=== PATIENT | male | born 1975 | race Caucasian/White ===

== ENCOUNTER 2020-04-27 08:07 | Outpatient (REF) | payer OTHER, SELFPAY ==
[2020-04-27 09:09] LABS: MANUAL DIFF FLAG NO
[2020-04-27 09:17] LABS: Basophils Absolute Auto 0.1 X10*3/uL (0.0-0.2); Basophils Percent Auto 0.7 % (0-2); Eosinophils Absolute Auto 0.1 X10*3/uL (0.0-0.4); Eosinophils Percent Auto 1.6 % (0-4); Hematocrit 43.2 % (42-52); Hemoglobin 14.6 g/dl (14.0-18.0); Imm Gran Abs Auto 0.02 X10*3/uL (0.00-0.03); Imm Gran Pct Auto 0.3 % (0.0-0.4); Lymphocytes Absolute Auto 2.4 X10*3/uL (1.2-4.9); Lymphocytes Percent Auto 35.1 % (20-40); Mean Corpuscular HGB Conc 33.8 g/dl (31.0-36.0); Mean Corpuscular Hemoglobin 28.2 pg (27.0-33.0); Mean Corpuscular Volume 83.4 fL (80-98); Mean Platelet Volume 11.6 fL (9.4-12.4); Monocytes Absolute Auto 0.4 X10*3/uL (0.1-1.2); Monocytes Percent Auto 5.4 % (2-11); Neutrophils Absolute Auto 3.8 X10*3/uL (2.0-8.3); Neutrophils Percent Auto 56.9 % (45-73); Platelet Count 215 X10*3/uL (160-400); Red Blood Count 5.18 X10*6/uL (4.60-5.80); White Blood Count 6.7 X10*3/uL (4.8-10.8)
[2020-04-27 09:41] LABS: Alanine Aminotransferase 12 U/L (0-40); Albumin Level 4.6 g/dL (3.5-5.0); Alkaline Phosphatase 60 U/L (39-117); Anion Gap 12 (12-20); Aspartate Amino Transferase 20 U/L (5-37); Bilirubin Total 0.5 mg/dL (0.0-1.0); Blood Urea Nitrogen 15 mg/dL (9-16); Calcium 9.2 mg/dL (8.4-10.2); Carbon Dioxide 28 mmol/L (22-29); Chloride 107 mmol/L (96-108); Cholesterol 267 mg/dL; Estimated Glomerular Filt Rate > 60; Glucose Fasting 92 mg/dL (60-99); HDL Cholesterol 43 mg/dL; LDL Cholesterol Calculated 205 mg/dl; Potassium 4.6 mmol/L (3.3-5.1); Sodium 142 mmol/L (135-145); Total Protein 6.9 g/dL (6.5-8.0); Triglycerides 95 mg/dL
[2020-04-27 10:07] LABS: Thyroid Stimulating Hormone 0.83 uIU/mL (0.32-4.0)
== END 2020-04-27 08:08 | disposition home or self-care (01) ==
LOC: HO.LAB 08:07
PROVIDERS: PCP Internal Medicine; Visit Provider Internal Medicine
DX: Z00.00 Encounter for general adult medical examination without abnormal findings (principal); E03.9 Hypothyroidism, unspecified; E11.9 Type 2 diabetes mellitus without complications
CPT/HCPCS: 36415; 80053; 80061; 84443; 85025

== ENCOUNTER 2021-05-17 09:48 | Outpatient (REF) | payer OTHER, SELFPAY ==
[2021-05-17 10:22] LABS: MANUAL DIFF FLAG NO
[2021-05-17 11:15] LABS: Basophils Percent Auto 0.4 % (0-2); Eosinophils Absolute Auto 0.1 X10*3/uL (0.0-0.4); Eosinophils Percent Auto 1.6 % (0-4); Hematocrit 44.3 % (42.0-52.0); Imm Gran Abs Auto 0.02 X10*3/uL (0.00-0.03); Imm Gran Pct Auto 0.3 % (0.0-0.4); Lymphocytes Absolute Auto 2.8 X10*3/uL (1.2-4.9); Lymphocytes Percent Auto 40.8 % (20-40); Mean Corpuscular HGB Conc 33.9 g/dl (31.0-36.0); Mean Corpuscular Hemoglobin 27.8 pg (27.0-33.0); Mean Corpuscular Volume 82.2 fL (80.0-98.0); Mean Platelet Volume 11.1 fL (9.4-12.4); Monocytes Absolute Auto 0.5 X10*3/uL (0.1-1.2); Monocytes Percent Auto 6.6 % (2-11); Neutrophils Absolute Auto 3.5 x10*3/uL (2.0-8.3); Neutrophils Percent Auto 50.3 % (45-73); Platelet Count 207 X10*3/uL (160-400); Red Blood Count 5.39 X10*6/uL (4.60-5.80); Red Cell Distribution Width 12.2 % (11.0-16.0)
[2021-05-17 12:02] LABS: Alanine Aminotransferase 16 U/L (0-40); Albumin Level 4.4 g/dL (3.5-5.0); Alkaline Phosphatase 55 U/L (39-117); Anion Gap 13 (12-20); Aspartate Amino Transferase 19 U/L (5-37); Bilirubin Total 0.6 mg/dL (0.0-1.0); Blood Urea Nitrogen 13 mg/dL (9-16); Calcium 9.7 mg/dL (8.4-10.2); Carbon Dioxide 27 mmol/L (22-29); Chloride 105 mmol/L (96-108); Cholesterol 255 mg/dL; Estimated Glomerular Filt Rate > 60; Glucose Fasting 88 mg/dL (60-99); HDL Cholesterol 39 mg/dL; LDL Cholesterol Calculated 188 mg/dl; Potassium 4.9 mmol/L (3.3-5.1); Sodium 140 mmol/L (135-145); Triglycerides 142 mg/dL
== END 2021-05-17 09:49 | disposition home or self-care (01) ==
LOC: HO.LAB 09:48
PROVIDERS: PCP Internal Medicine; Visit Provider Internal Medicine
DX: Z00.00 Encounter for general adult medical examination without abnormal findings (principal); Z13.0 Encounter for screening for diseases of the blood and blood-forming organs and certain disorders involving the immune mechanism
CPT/HCPCS: 36415; 80053; 80061; 85025

== ENCOUNTER 2022-05-06 09:36 | Outpatient (REF) | payer OTHER, SELFPAY ==
[2022-05-06 09:45] LABS: MANUAL DIFF FLAG NO
[2022-05-06 11:05] LABS: Basophils Percent Auto 0.5 % (0-2); Eosinophils Absolute Auto 0.1 X10*3/uL (0.0-0.4); Eosinophils Percent Auto 0.9 % (0-4); Hematocrit 42.9 % (42.0-52.0); Hemoglobin 14.5 g/dl (14.0-18.0); Imm Gran Abs Auto 0.02 X10*3/uL (0.00-0.03); Imm Gran Pct Auto 0.3 % (0.0-0.4); Lymphocytes Absolute Auto 2.4 X10*3/uL (1.2-4.9); Lymphocytes Percent Auto 36.9 % (20-40); Mean Corpuscular HGB Conc 33.8 g/dl (31.0-36.0); Mean Corpuscular Volume 82.8 fL (80.0-98.0); Mean Platelet Volume 11.3 fL (9.4-12.4); Monocytes Absolute Auto 0.4 X10*3/uL (0.1-1.2); Monocytes Percent Auto 6.4 % (2-11); Neutrophils Absolute Auto 3.6 x10*3/uL (2.0-8.3); Platelet Count 205 X10*3/uL (160-400); Red Blood Count 5.18 X10*6/uL (4.60-5.80); Red Cell Distribution Width 12.7 % (11.0-16.0); White Blood Count 6.6 X10*3/uL (4.8-10.8)
[2022-05-06 12:12] LABS: Alanine Aminotransferase 13 U/L (0-40); Albumin Level 4.4 g/dL (3.5-5.0); Alkaline Phosphatase 54 U/L (39-117); Anion Gap 12 (12-20); Aspartate Amino Transferase 21 U/L (5-37); Bilirubin Total 0.8 mg/dL (0.0-1.0); Blood Urea Nitrogen 13 mg/dL (9-16); Calcium 9.3 mg/dL (8.4-10.2); Carbon Dioxide 27 mmol/L (22-29); Chloride 107 mmol/L (96-108); Cholesterol 235 mg/dL; Estimated Glomerular Filt Rate > 60; Glucose Fasting 83 mg/dL (60-99); HDL Cholesterol 38 mg/dL; LDL Cholesterol Calculated 170 mg/dl; Potassium 5.1 mmol/L (3.3-5.1); Sodium 141 mmol/L (135-145); Total Protein 6.6 g/dL (6.5-8.0); Triglycerides 137 mg/dL
[2022-05-06 12:29] LABS: Thyroid Stimulating Hormone 0.84 uIU/mL (0.32-4.0)
== END 2022-05-06 09:37 | disposition home or self-care (01) ==
LOC: HO.LAB 09:36
PROVIDERS: PCP Internal Medicine; Visit Provider Internal Medicine
DX: D64.9 Anemia, unspecified (principal); N28.9 Disorder of kidney and ureter, unspecified; E03.9 Hypothyroidism, unspecified; E78.5 Hyperlipidemia, unspecified
CPT/HCPCS: 36415; 80053; 80061; 84443; 85025

== ENCOUNTER 2023-05-10 08:38 | Outpatient (AMB) | payer OTHER, SELFPAY ==
[2023-05-10 08:45] VITALS: BP 128/80; PULSE 67; O2SAT 100; BMI 27.1
--- NOTE | 2023-05-10 08:45 | A.OFFPC_ITS ---
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 Father No problems noted. Social History Housing: House Alcohol intake: current Alcohol intake frequency: a few times a month Patient Tobacco Use Status: Current everyday Tobacco user Tobacco use type: Smokeless Tobacco (chews nicotine gum) e-Cigarette/Vaping Use: Never Used Second Hand Smoke Exposure: No service: No Current occupational status: employed Cognitive needs: No Hearing needs: No Vision needs: No Questionnaire PHQ-9 Over the last 2 weeks, how often have you been bothered by any of the following problems? 1. Little interest or pleasure in doing things: not at all 2. Feeling down, depressed, or hopeless: not at all 3. Trouble falling or staying asleep, or sleeping too much: not at all 4. Feeling tired or having little energy: not at all 5. Poor appetite or overeating: not at all 6. Feeling bad about yourself - or that you are a failure or have let yourself or your family down: not at all 7. Trouble concentrating on things, such as reading the newspaper or watching television: not at all 8. Moving or speaking so slowly that other people could have noticed. Or the opposite - being so fidgety or restless that you have been moving around a lot more than usual: not at all 9. Thoughts that you would be better off or of hurting yourself in some way: not at all Total score: 0 Depression Screening Interpretation: Negative Depression Screening Done: Yes 42457 - PHQ-9 Billing: Yes Source: Developed by Drs. Trav Fraser, Zoila Mckeon, Sukhjinder Kennedy and colleagues, with an educational breann from [employer]. Thrive Questionnaire Date Thrive assessed: 05/10/23 I am a: Patient What is your living situation today?: I have a steady place to live Within the past 12 months, did the food you bought not last and you didn't have the money to get more?: Never true Within the past 12 months, did you worry whether your food would run out before you got money to buy more?: Never true Do you have trouble paying for medicines?: No Do you have trouble getting transportation to medical appointments?: No Do you have trouble paying your heating and electricity bill?: No Do you have trouble taking care of your child, family member or friend?: No Do you have trouble with day-to-day activities such as bathing, preparing meals, shopping, managing finances, etc.?: No Are you currently unemployed and looking for a job?: No Are you interested in more education?: No Please select the resources that you would like help with: None THRIVE Score: 0 AUDIT C Alcohol Use Questionnaire (AUDIT-C) 1. How often do you have a drink containing alcohol?: Monthly or less 2. How many drinks containing alcohol do you have on a typical day when you are drinking?: 3 or 4 3. How often do you have six or more drinks on one occasion?: Less than monthly Total Score: 3 Score Reviewed/Action Taken: Yes WILFREDO-7 AMB Questionnaire WILFREDO-7 Date WILFREDO - 7 assessed: 05/10/23 Feeling nervous, anxious, or on edge: 0 = Not at all Not being able to stop or control worryin = Not at all Worrying too much about different things: 0 = Not at all Trouble relaxin = Not at all Being so restless that it is hard to sit still: 0 = Not at all Becoming easily annoyed or irritable: 0 = Not at all Feeling afraid as if something awful might happen: 0 = Not at all Total WILFREDO-7 score (0-4 normal; 5-9 mild; 10-14 moderate; 15-21 severe): 0 Source: Developed by Drs. Trav Fraser, Zoila Mckeon, Sukhjinder Kennedy and colleagues, with an educational breann from [employer]. WILFREDO-7 Assessment Billing WILFREDO-7 Assessment Tool: WILFREDO-7 Assessment 86786 Review of Systems Const Denies chills, Denies fatigue, Denies headache(s) and Denies weight loss Eyes Denies change in vision, Denies diplopia and Denies eye pain ENT Denies vertigo, Denies dizziness, Denies headache(s) and Denies nasal discharge Card Denies chest pain, Denies rapid heart rate and Denies dyspnea on exertion Resp Denies chest congestion, Denies cough, Denies pain with cough and Denies dyspnea on exertion GI Denies abdominal pain, Denies hematochezia and Denies change in bowel habits Musc Denies myalgias, Denies arthralgias and Denies joint swelling Skin/Breast Denies lesions and Denies unusual bruising Neuro Denies vertigo, Denies dizziness, Denies headache(s) and Denies focal weakness Endo Denies fatigue Physical exam (Primary Care) Vital Signs: Last Vital Signs Pulse 67 05/10/23 08:45 BP 128/80 05/10/23 08:45 Pulse Ox 100 05/10/23 08:45 Oxygen Delivery Method Room Air 05/10/23 08:45 BMI result Body Mass Index 27.1 Tobacco/Smoking Status: Tobacco use Status Tobacco use date assessed 05/10/23 05/10/23 08:46 Patient Tobacco Use Status Current everyday Tobacco 05/10/23 08:46 Tobacco use type Smokeless Tobacco (chews 05/10/23 08:46 nicotine gum) e-Cigarette/Vaping Use Never Used 05/10/23 08:46 PHQ-9: PHQ-9 Score PHQ-9: Total score 0 05/10/23 08:47 Depression Screening Interpretation: Negative Thrive Assessment: Date of Thrive Assessment Date Thrive assessed 05/10/23 05/10/23 08:47 Const General: cooperative, healthy appearing and no acute distress Orientation/consciousness: oriented to person, oriented to place and oriented to time HENMT Head: Yes normal to inspection, Yes normocephalic and Yes atraumatic Mouth: Normal oral and palatal mucosa present and tongue normal Throat: Yes posterior oropharynx normal and Yes uvula midline Eyes General: appearance normal, both eyes and all related structures Neck Neck: Yes normal visual inspection, Yes full ROM and Yes no lymphadenopathy Thyroid: Thyroid normal Carotids: normal carotid upstroke Chest Chest palpation & inspection: normal inspection of the chest Resp Effort & Inspection: normal respiratory effort and able to speak in complete sentences Auscultation: clear to auscultation bilaterally Cardio Jugular venous distension: no JVD Palpation: normal PMI Rate: regular rate Rhythm: regular rhythm Heart sounds: S1 normal heart sound present and S2 normal heart sound present GI Inspection: Yes normal to inspection Palpation (GI): Soft to palpation and No hepatosplenomegaly present Auscultation: normal bowel sounds General: Yes no CVA tenderness Back/Spine/Pelvis Back: no CVA tenderness Skin General skin exam: no rashes or lesions noted Neuro General: oriented to person, oriented to place and oriented to time Extrem General: Yes normal to inspection and Yes full ROM Assessment and Plan Assessment & Plan (1) Physical exam: Code(s): Z00.00 - Encounter for general adult medical examination without abnormal findings Plan: healthy; labs and colonoscopy Orders: Orders Comprehensive [place]. Panel Fast Today N28.9 - Disorder of kidney and ureter, unspecified Lipid Panel Today E78.5 - Hyperlipidemia, unspecified Complete Blood Count Auto Diff Today D64.9 - Anemia, unspecified Referrals Gastroenterology Referral Z12.11 - Encounter for screening for malignant neoplasm of colon Coding Level of Care Code Est Pt Prev Care 40-64y(86665) Diagnoses Physical exam Z00.00 Additional Codes WILFREDO-7 Assessment Billing - WILFREDO-7 Assessment Tool: WILFREDO-7 Assessment 93154 ([id number])
== END 2023-05-10 09:07 | disposition home or self-care (01) ==
PROVIDERS: Visit Provider Internal Medicine
DX: Z00.00 Encounter for general adult medical examination without abnormal findings (principal)
CPT/HCPCS: 99396

== ENCOUNTER 2023-05-10 09:22 | Outpatient (REF) | payer OTHER, SELFPAY ==
[2023-05-10 09:46] LABS: MANUAL DIFF FLAG NO
[2023-05-10 10:15] LABS: Basophils Percent Auto 0.6 % (0-2); Eosinophils Absolute Auto 0.1 X10*3/uL (0.0-0.4); Eosinophils Percent Auto 1.6 % (0-4); Hematocrit 42.4 % (42.0-52.0); Hemoglobin 14.9 g/dl (14.0-18.0); Imm Gran Abs Auto 0.01 X10*3/uL (0.00-0.03); Imm Gran Pct Auto 0.2 % (0.0-0.4); Lymphocytes Absolute Auto 2.3 X10*3/uL (1.2-4.9); Mean Corpuscular HGB Conc 35.1 g/dl (31.0-36.0); Mean Corpuscular Hemoglobin 28.6 pg (27.0-33.0); Mean Corpuscular Volume 81.4 fL (80.0-98.0); Mean Platelet Volume 10.9 fL (9.4-12.4); Monocytes Absolute Auto 0.4 X10*3/uL (0.1-1.2); Monocytes Percent Auto 6.4 % (2-11); Neutrophils Absolute Auto 3.4 x10*3/uL (2.0-8.3); Neutrophils Percent Auto 54.2 % (45-73); Platelet Count 180 X10*3/uL (160-400); Red Blood Count 5.21 X10*6/uL (4.60-5.80); Red Cell Distribution Width 12.4 % (11.0-16.0); White Blood Count 6.2 X10*3/uL (4.8-10.8)
[2023-05-10 10:59] LABS: Alanine Aminotransferase 13 U/L (0-40); Albumin Level 4.4 g/dL (3.5-5.0); Alkaline Phosphatase 57 U/L (39-117); Anion Gap 11 (12-20); Aspartate Amino Transferase 22 U/L (5-37); Blood Urea Nitrogen 17 mg/dL (9-16); Calcium 9.5 mg/dL (8.4-10.2); Carbon Dioxide 28 mmol/L (22-29); Chloride 106 mmol/L (96-108); Cholesterol 212 mg/dL (<200); Estimated Glomerular Filt Rate > 60; Glucose Fasting 88 mg/dL (60-99); HDL Cholesterol 43 mg/dL (>40); LDL Cholesterol Calculated 146 mg/dL (<100); Potassium 4.4 mmol/L (3.3-5.1); Sodium 141 mmol/L (135-145); Total Protein 6.8 g/dL (6.5-8.0); Triglycerides 116 mg/dL (<150)
[2023-05-10 11:51] LABS: Bilirubin Total 0.6 mg/dL (0.0-1.0)
== END 2023-05-10 09:23 | disposition home or self-care (01) ==
LOC: HO.LAB 09:22
PROVIDERS: PCP Internal Medicine; Visit Provider Internal Medicine
DX: D64.9 Anemia, unspecified (principal); E78.5 Hyperlipidemia, unspecified; N28.9 Disorder of kidney and ureter, unspecified
CPT/HCPCS: 36415; 80053; 80061; 85025

== ENCOUNTER 2024-05-10 13:41 | Outpatient (AMB) | payer OTHER, SELFPAY ==
[2024-05-10 14:00] VITALS: BP 124/72; PULSE 80; RESP 16; TEMP 36.4; O2SAT 98; BMI 28.0
--- NOTE | 2024-05-10 14:00 | A.OFFPC_ITS ---
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 Zavala, retired The patient reports that he suffers from PTSD due to being on a concentration camp in [facility] Reports that the memories bringing some anxiety. Reports that he feels like he forgets important information Like he can not remember when his father or brother passed The patient reports that he snores when he sleeps and would like to be evaluated Patient reports that he has not have labs done in a while Patient reports that his brother was diagnosed with a lung cancer at age 63 Reports that he would like to get checked. Reports that he has smoked for more than 15 years on and off Reports that he is still uses nicotine and unable to stop on this time The patient would like to be evaluated for lung cancer Denies any shortness of breath, chest pain, heart palpitation or dizziness at this time [facility] Medical History (Updated 05/23/24 @ 21:15 by YING Skaggs) Family history of lung cancer PTSD (post-traumatic stress disorder) Surgical History History of tonsillectomy History of vasectomy Family History (Updated 05/23/24 @ 21:07 by YING Skaggs) Mother No problems noted. Father No problems noted. Brother Family history of lung cancer Social History Housing: House Alcohol intake: current Alcohol intake frequency: a few times a month Patient Tobacco Use Status: Current everyday Tobacco user Tobacco use type: Smokeless Tobacco (chews nicotine gum) e-Cigarette/Vaping Use: Never Used Second Hand Smoke Exposure: No service: No Current occupational status: employed Cognitive needs: No Hearing needs: No Vision needs: No Questionnaire PHQ-9 Over the last 2 weeks, how often have you been bothered by any of the following problems? 1. Little interest or pleasure in doing things: not at all 2. Feeling down, depressed, or hopeless: more than half the days 3. Trouble falling or staying asleep, or sleeping too much: not at all 4. Feeling tired or having little energy: more than half the days 5. Poor appetite or overeating: not at all 6. Feeling bad about yourself - or that you are a failure or have let yourself or your family down: not at all 7. Trouble concentrating on things, such as reading the newspaper or watching television: more than half the days 8. Moving or speaking so slowly that other people could have noticed. Or the opposite - being so fidgety or restless that you have been moving around a lot more than usual: not at all 9. Thoughts that you would be better off or of hurting yourself in some way: not at all Total score: 6 Depression Screening Interpretation: Positive Depression Screening Done: Yes 20913 - PHQ-9 Billing: Yes Source: Developed by Drs. Trav Fraser, Zoila Mckeon, Sukhjinder Kennedy and colleagues, with an educational breann from [employer]. Thrive Questionnaire Date Thrive assessed: 05/10/24 I am a: Patient What is your living situation today?: I have a steady place to live Within the past 12 months, did the food you bought not last and you didn't have the money to get more?: Never true Within the past 12 months, did you worry whether your food would run out before you got money to buy more?: Never true Do you have trouble paying for medicines?: No Do you have trouble getting transportation to medical appointments?: No Do you have trouble paying your heating and electricity bill?: No Do you have trouble taking care of your child, family member or friend?: No Do you have trouble with day-to-day activities such as bathing, preparing meals, shopping, managing finances, etc.?: No Are you currently unemployed and looking for a job?: No Are you interested in more education?: No Please select the resources that you would like help with: None Currently or been in a relationship where the following occur: No concerns reported THRIVE Score: 0 AUDIT C Alcohol Use Questionnaire (AUDIT-C) 1. How often do you have a drink containing alcohol?: Monthly or less 2. How many drinks containing alcohol do you have on a typical day when you are drinking?: 3 or 4 3. How often do you have six or more drinks on one occasion?: Less than monthly Total Score: 3 Score Reviewed/Action Taken: Yes WILFREDO-7 AMB Questionnaire WILFREDO-7 Date WILFREDO - 7 assessed: 05/10/24 Feeling nervous, anxious, or on edge: 2 = More than half the days Not being able to stop or control worryin = More than half the days Worrying too much about different things: 3 = Nearly every day Trouble relaxin = More than half the days Being so restless that it is hard to sit still: 0 = Not at all Becoming easily annoyed or irritable: 0 = Not at all Feeling afraid as if something awful might happen: 2 = More than half the days Total WILFREDO-7 score (0-4 normal; 5-9 mild; 10-14 moderate; 15-21 severe): 11 Source: Developed by Drs. Trav Fraser, Zoila Mckeon, Sukhjinder Kennedy and colleagues, with an educational breann from [employer]. WILFREDO-7 Assessment Billing WILFREDO-7 Assessment Tool: WILFREDO-7 Assessment 21938 Review of Systems Const Denies headache(s) and Reports snoring Eyes Denies loss of vision ENT Denies vertigo, Denies dizziness, Denies headache(s) and Denies sore throat Card Denies chest pain, Denies leg edema and Denies lightheadedness Resp Denies cough, Denies hemoptysis, Reports snoring and Denies wheezing GI Denies abdominal pain, Denies melena, Denies constipation, Denies diarrhea and Denies vomiting Denies dysuria, Denies urinary frequency and Denies urinary urgency Musc Denies arthralgias, Denies joint swelling, Denies numbness and Denies tingling Neuro Denies Abnormal speech present, Denies behavioral changes, Denies vertigo, Denies dizziness, Denies headache(s), Denies loss of vision, Reports memory loss, Denies numbness and Denies tingling Psych Reports anxiety, Denies behavioral changes, Reports depression, Reports memory loss, Denies panic attacks and Reports other (PTSD) Jong/Lymph Denies easy bleeding and Denies easy bruising Aller/Immun Denies wheezing Physical exam (Primary Care) Vital Signs: Last Vital Signs Temp 97.6 F 05/10/24 14:00 Pulse 80 05/10/24 14:00 Resp 16 05/10/24 14:00 BP 124/72 05/10/24 14:00 Pulse Ox 98 05/10/24 14:00 Oxygen Delivery Method Room Air 05/10/24 14:00 BMI result Body Mass Index 28.0 Tobacco/Smoking Status: Tobacco use Status Tobacco use date assessed 05/10/23 05/10/24 14:09 Patient Tobacco Use Status Current everyday Tobacco 05/10/24 14:09 Tobacco use type Smokeless Tobacco (chews 05/10/24 14:09 nicotine gum) e-Cigarette/Vaping Use Never Used 05/10/24 14:09 PHQ-9: PHQ-9 Score PHQ-9: Total score 6 05/23/24 14:11 Depression Screening Interpretation: Positive Thrive Assessment: Date of Thrive Assessment Date Thrive assessed 05/10/24 05/10/24 14:09 Currently or been in a relationship where the following occur: No concerns reported Const General: healthy appearing, no acute distress, alert and awake Nutritional Appearance: well nourished Orientation/consciousness: oriented to person, oriented to place and oriented to time HENMT Ears: external ears normal General nose exam: Normal external nose present Eyes Conjunctivae: conjunctivae normal Sclerae: sclerae normal Pupils: Equal, round and reactive pupils present Neck Neck: Yes no lymphadenopathy and Yes no JVD Thyroid: Thyroid normal Carotids: no bruits Resp Effort & Inspection: normal respiratory effort and not tachypneic Auscultation: no crackles, no rales, no rhonchi and no wheezes Cardio Rate: regular rate Rhythm: regular rhythm Heart sounds: no murmurs and normal S1 and S2 GI Palpation (GI): Soft to palpation, nontender, no hepatomegaly and no splenomegaly Auscultation: normal bowel sounds Skin General skin exam: no rashes or lesions noted and dry skin Neuro General: oriented to person, oriented to place and oriented to time Cranial nerves: Yes Equal, round and reactive pupils present Speech: No Abnormal speech present Gait exam (Neuro): Normal gait present Motor exam (neuro): no tremor noted Psych Mental Status: mental status grossly normal Speech and movement: Normal speech and movement present Affect: normal affect Attitude: cooperative Thought process: Normal thought process present Coding Level of Care Code New Pt Level 4 (51143) Diagnoses PTSD (post-traumatic stress disorder) F43.10 Anxiety F41.9 Nicotine dependence with nicotine-induced disorder, unspecified nicotine product type F17.209 Nicotine product type: unspecified Substance use status: unspecified nicotine-induced disorder Family history of lung cancer Z80.1 Screening for lung cancer Z12.2 Snores R06.83 Additional Codes WILFREDO-7 Assessment Billing - WILFREDO-7 Assessment Tool: WILFREDO-7 Assessment 76413 ([id number]) PHQ-9 - 07434 - PHQ-9 Billing: Yes ([id number]) Time Spent (min) 38 Assessment & Plan Assessment & Plan (1) PTSD (post-traumatic stress disorder): Code(s): F43.10 - Post-traumatic stress disorder, unspecified Category: Medical Plan: Patient was in a concentration camp in [facility]. Reports that he is still feels uneasy, worries a lot, and has been losing his short-term memory. Reports that he can not remember important dates at times. Denies SI/HI, We will put in a psychiatry referral for evaluation. (2) Anxiety: Code(s): F41.9 - Anxiety disorder, unspecified Category: Medical Plan: Same as above (3) Nicotine dependence: Code(s): F17.200 - Nicotine dependence, unspecified, uncomplicated Category: Medical Qualifiers: Nicotine product type: unspecified Substance use status: unspecified nicotine-induced disorder Qualified Code(s): F17.209 - Nicotine dependence, unspecified, with unspecified nicotine-induced disorders Plan: Patient has been smoking on and off for over 15 years. Reports that he is not currently smoking cigarettes but he is still using nicotine and can not do without it at this time. Encouraged cessation. (4) Family history of lung cancer: Comment: Brother diagnosed with lung cancer at age of 63 Code(s): Z80.1 - Family history of malignant neoplasm of trachea, bronchus and lung Category: Medical Plan: Patient reports that his brother was diagnosed with lung cancer at age 63 and he would like to be evaluated. Given his smoking history, thoracic surgeon referral placed. (5) Screening for lung cancer: Code(s): Z12.2 - Encounter for screening for malignant neoplasm of respiratory organs Category: Medical Plan: Thoracic surgeon referral placed (6) Snores: Code(s): R06.83 - Snoring Category: Medical Plan: Home sleep study ordered further evaluate Orders: Orders Comprehensive [place]. Panel Fast 05/13/24 Z00.00 - Encounter for general adult medical examination without abnormal findings Lipid Panel 05/13/24 Z00.00 - Encounter for general adult medical examination without abnormal findings Hemoglobin A1c 05/13/24 Z00.00 - Encounter for general adult medical examination without abnormal findings Complete Blood Count Auto Diff 05/13/24 Z00.00 - Encounter for general adult me dical examination without abnormal findings Vitamin D 25-OH Total 05/13/24 Z00.00 - Encounter for general adult medical examination without abnormal findings TSH reflex Free T4 05/13/24 Z00.00 - Encounter for general adult medical examination without abnormal findings UA CC w/rflx Micro + Cult 05/13/24 Z00.00 - Encounter for general adult medical examination without abnormal findings
== END 2024-05-10 14:52 | disposition home or self-care (01) ==
LOC: HO.HMCH 13:42
PROVIDERS: PCP Internal Medicine
DX: F43.10 Post-traumatic stress disorder, unspecified (principal); F41.9 Anxiety disorder, unspecified; F17.209 Nicotine dependence, unspecified, with unspecified nicotine-induced disorders; Z80.1 Family history of malignant neoplasm of trachea, bronchus and lung; Z12.2 Encounter for screening for malignant neoplasm of respiratory organs; R06.83 Snoring

== ENCOUNTER → 2024-05-10 13:41 | Outpatient (BNVA) | payer OTHER, SELFPAY | PROVIDERS: PCP Internal Medicine | DX: F43.10 Post-traumatic stress disorder, unspecified (principal); F41.9 Anxiety disorder, unspecified; R06.83 Snoring; F17.209 Nicotine dependence, unspecified, with unspecified nicotine-induced disorders; Z80.1 Family history of malignant neoplasm of trachea, bronchus and lung | CPT/HCPCS: 96127 ==

== ENCOUNTER 2024-05-13 08:48 | Outpatient (REF) | payer OTHER, SELFPAY ==
[2024-05-13 09:30] LABS: MANUAL DIFF FLAG NO
[2024-05-13 10:15] LABS: Basophils Percent Auto 0.7 % (0-2); Eosinophils Absolute Auto 0.1 X10*3/uL (0.0-0.4); Eosinophils Percent Auto 1.2 % (0-4); Hematocrit 41.7 % (42.0-52.0); Hemoglobin 14.8 g/dl (14.0-18.0); Imm Gran Abs Auto 0.02 X10*3/uL (0.00-0.03); Imm Gran Pct Auto 0.3 % (0.0-0.4); Lymphocytes Absolute Auto 2.2 X10*3/uL (1.2-4.9); Lymphocytes Percent Auto 38.5 % (20-40); Mean Corpuscular HGB Conc 35.5 g/dl (31.0-36.0); Mean Corpuscular Hemoglobin 28.6 pg (27.0-33.0); Mean Corpuscular Volume 80.5 fL (80.0-98.0); Monocytes Absolute Auto 0.4 X10*3/uL (0.1-1.2); Monocytes Percent Auto 6.6 % (2-11); Neutrophils Percent Auto 52.7 % (45-73); Platelet Count 223 X10*3/uL (160-400); Red Blood Count 5.18 X10*6/uL (4.60-5.80); Red Cell Distribution Width 12.3 % (11.0-16.0); White Blood Count 5.8 X10*3/uL (4.8-10.8)
[2024-05-13 10:23] LABS: Estimated Average Glucose 105 mg/dL; Hemoglobin A1c % 5.3 % (<6.0); Total Hemoglobin (HGBA1C) 3892.1614 umol/L
[2024-05-13 10:45] LABS: Appearance Urine Clear; Color Urine Yellow; Glucose Urine UA Negative (Negative); Leukocyte Esterase Urine Negative (Negative); Nitrite Urine Negative (Negative); Specific Gravity - Urine 1.015 (1.005-1.025); Urine Blood Negative (Negative); Urine Ketones Negative (Negative); Urine Protein Negative (Neg-Trace)
[2024-05-13 10:51] LABS: Alanine Aminotransferase 16 U/L (0-40); Albumin Level 4.4 g/dL (3.5-5.0); Alkaline Phosphatase 51 U/L (39-117); Anion Gap 11 (12-20); Aspartate Amino Transferase 22 U/L (5-37); Bilirubin Total 0.6 mg/dL (0.0-1.0); Blood Urea Nitrogen 12 mg/dL (9-16); Calcium 9.4 mg/dL (8.4-10.2); Carbon Dioxide 26 mmol/L (22-29); Chloride 110 mmol/L (96-108); Cholesterol 222 mg/dL (<200); Estimated Glomerular Filt Rate > 60; Glucose Fasting 92 mg/dL (60-99); HDL Cholesterol 40 mg/dL (>40); LDL Cholesterol Calculated 163 mg/dL (<100); Potassium 4.5 mmol/L (3.3-5.1); Sodium 142 mmol/L (135-145); Total Protein 6.7 g/dL (6.5-8.0); Triglycerides 96 mg/dL (<150)
[2024-05-13 11:10] LABS: TSH reflex Free T4 0.72 uIU/mL (0.32-4.0); Vitamin D 25-OH Total 25.6 ng/mL (>30)
== END 2024-05-13 08:49 | disposition home or self-care (01) ==
LOC: HO.LAB 08:48
DX: Z00.00 Encounter for general adult medical examination without abnormal findings (principal); Z13.1 Encounter for screening for diabetes mellitus; Z13.6 Encounter for screening for cardiovascular disorders
CPT/HCPCS: 36415; 80053; 80061; 81003; 82306; 83036; 84443; 85025

== ENCOUNTER 2024-06-29 09:04 | Outpatient (AMB) | payer OTHER, SELFPAY ==
--- NOTE | 2024-06-29 09:34 | MHC.OFFVISPS ---
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 Pt has been diagnosed with PTSD secondary to his time in [place] war and his placement in a concentration camp for 8 months when he was only 19 years of age. He came to [place] in 1998 and saw psychiatrist and therapist. He was tried on a number of medications for more dev PTSD symptoms; He only recalls prozac which helped with some symptoms but not the memory, recall ,concentration symptoms he is now more concerned with. He denies intrusive memories of past trauma. He denies flashbacks or nightmares. He describes feeling anxious and worried frequently. He reports his body feels tense and on edge daily; He feels fatigue every day. He avoids activities because og the fatigue. He can be startled by heights, images on TV of heights, cliffs, bridges, high buildings; he describes his body reacting with hypervigilance and a panicky feeling in response; He reports no emotional reaction to images of war but if there are emotional cartoons, stories of loss, or he sees a car accident on road, he can become emotional, cry easily or have trouble talking; he reports intermittent trouble with working memory. He has inconsistent recall of numbers, procedures, facts. This information comes to him at a later time showing that he has inconsistent access to that information likely from anxiety and dissociation from trauma. He functions well at home and work. The aforementioned symptoms worry him making him think he has a medical problem or early dementia. He completed the Reji Cognitive Assessment in the office today and scored 27/30. He had trouble with recalling words after 5 minutes of distraction, recalling only 3/5. His PHQ9=4 and his GAD7=11. We discussed options for medications to help with the level of anxiety, tension and hypervigilance. Discussed SSRIs, SNRIs, and mood stabilizers particularly lamictal for off label treatment of PTSD. We also discussed the effects of trauma leading to dissociation and memory organization that follow trauma such that he experienced. Discussed stress management, sleep hygiene and nutrition that will help with PTSD symptoms. Past Psychiatric History: outpt tx 1998 No IPLOC. Subjective Subjective Subjective Medication Compliance: Yes Side effects from medications: No Review of Systems Medical Review of Systems: unchanged Mental Status Exam Mental Status Exam Patient Appearance: Well Grooomed and Appropriate Patient Orientation: Person, Place, Time and Situation Level of Consciousness: Awake, Appropriate and Alert Patient Behavior: Appropriate, Talkative and Cooperative Mood Description: Calm and Happy Affect Description: Calm and Happy Patient Cognition Impaired: No Ability to Follow Directions: Good Speech Pattern: Clear and Appropriate Memory Description: Episodic Impaired and Working Impaired Hallucinations: None Delusions: Not Present Thought Process: Intact and Goal Oriented Thought Content: positive for Intact and positive for Goal Oriented Judgement: Good Results Reviewed Results Reviewed: reviewed recent blood work results Assessment and Plan Assessment & Plan (1) Fatigue: Status: Acute Qualifiers: Fatigue type: chronic, unspecified Qualified Code(s): R53.82 - Chronic fatigue, unspecified Code(s): R53.83 - Other fatigue (2) PTSD (post-traumatic stress disorder): Status: Acute Code(s): F43.10 - Post-traumatic stress disorder, unspecified (3) Cognitive attention deficit: Status: Acute Code(s): R41.840 - Attention and concentration deficit Plan pt symptoms can be explained by the results of severre trauma that leads to PTSD symptoms and mamory organization that is impacted by dissociation. His score on the MOCA test does not indicate early dementia. Anxiety and truama can have profound effect on attention, memory, especially working memory and distractibility. Plan is for trial of lamictal with titration as per below He was instructed to stop medication and call office if develops rash. labs ordered to rule out medical etiology to memory problems and fatigue. consider EMDR therapy Medications: New lamotrigine (Lamictal) 25 mg orally take one tablet daily x14 days then take 2 tablets daily for 14 days then take 3 tablets daily x 14 days then take 4 tablets daily 90 tabs 0RF Orders: Orders Vitamin B12 and Folate Today R53.83 - Other fatigue Transferrin Today R53.83 - Other fatigue Ferritin Today R53.83 - Other fatigue IRON PROFILE Today R53.83 - Other fatigue Counseling and coordination of Care Pt. Self Management counseling: Exercise, Maintenance-social rhythm, Mod caffeine/ETOH intake, Nutrition education and improvement, Sleep hygiene and Problem solving Medication management counseling: Effectiveness, Side effects, Dosing range, Duration, Drug interaction and Adherence Diagnosis and Prognosis Counseling: Accuracy of diagnosis, Prognosis over time, Impact of diagnosis on life functions, Impact of family relationship, Problematic behaviors secondary to diagnosis and Adequacy of current interventions Details: I spent 70 minutes reviewing the record, seeing the patient and documenting in the medical record. Counseling provided to the patient/caregiver as outlined below. Addressed patient/caregiver concerns regarding current medication regime including effective adherence. Addressed patient/caregiver concerns regarding diagnosis and prognosis including accuracy of diagnosis, prognosis over time, impact of diagnosis. Addressed patient/caregiver concerns regarding impact of recent stressors. [facility] Medical History (Updated 06/29/24 @ 11:32 by Diane Emery APRN) Family history of lung cancer PTSD (post-traumatic stress disorder) Surgical History History of tonsillectomy History of vasectomy Family History (Updated 05/23/24 @ 21:07 by YING Skaggs) Mother No problems noted. Father No problems noted. Brother Family history of lung cancer Social History Housing: House Alcohol intake: current Alcohol intake frequency: a few times a month Patient Tobacco Use Status: Current everyday Tobacco user Tobacco use type: Smokeless Tobacco (chews nicotine gum) e-Cigarette/Vaping Use: Never Used Second Hand Smoke Exposure: No service: No Current occupational status: employed Cognitive needs: No Hearing needs: No Vision needs: No Social History: lives with , has 2 children 22 yr old daughter and 14 yr old son. works [employer] Substance History: social etoh use; no hx drug abuse Trauma History: yes Coding Level of Care Code Psych Diag Eval w/Med (52673) Diagnoses Chronic fatigue R53.82 Fatigue type: chronic, unspecified PTSD (post-traumatic stress disorder) F43.10 Cognitive attention deficit R41.840
--- OUTSIDE RECORDS SUMMARY | 2024-06-29 09:34 | XMS_ITS ---
Author Organization [facility] Address [address] [place] [id number] Care Team Providers Care Metal Worker Name Role Phone Michael Zavala MD Primary Care Provider Trav Roberts [phone] Encounters Encounter Location Date Provider Diagnosis [facility] [address] [place] [id number] 05/27/2023 Trav Perez Plan Of Treatment No Information Progress Notes * LUPE TSANGDOB:[birth year] (48 yo M)Acc No.[id number]:05/27/2023 Patient:?MOOKIE TSANG L :1975???Age:48 Y???Sex:Male Address:[address] [place] [address], [id number] * true * Date:? Generated for Betty ren/Estephania/eTransmitting on:?06/29/2024 09:34 AM EDT
--- OUTSIDE RECORDS SUMMARY | 2024-06-29 09:34 | XMS_ITS | Patient Health Record ---
Author Organization [facility] Address [address] [place] [id number] Care Team Providers Care Fabric Cutter Name Role Phone Lucas TORRES, Michael Primary Care Provider Trav Roberts Unavailable [phone] Reason For Referral No Information Plan Of Treatment No Information Insurance Providers Payer Name Payer Address Payer Phone Subscriber Number Group Number Insured Name Patient Relationship to Insured Coverage Start Date Coverage End Date Diversified Gaurav [address] [place] [phone] [id number] LUPE DYE Self - patient is the insured
== END 2024-06-29 10:24 | disposition home or self-care (01) ==
PROVIDERS: Visit Provider Clinical Nurse Specialist Psychiatric/Mental Health
DX: F43.11 Post-traumatic stress disorder, acute (principal); R41.840 Attention and concentration deficit; R53.82 Chronic fatigue, unspecified
CPT/HCPCS: 90792

== ENCOUNTER → 2024-06-29 09:04 | Outpatient (BNVA) | payer OTHER, SELFPAY | PROVIDERS: Visit Provider Clinical Nurse Specialist Psychiatric/Mental Health | DX: F43.10 Post-traumatic stress disorder, unspecified (principal); R53.82 Chronic fatigue, unspecified; R41.840 Attention and concentration deficit | CPT/HCPCS: 90792 ==

== ENCOUNTER 2024-08-03 09:31 | Outpatient (AMB) | payer OTHER, SELFPAY ==
--- NOTE | 2024-08-03 09:16 | A.OFFPSYCH_ITS ---
Intake Intake Visit Reasons: consultation Presentation Specialist Required: No Allergies No Known Allergies Allergy (Verified 05/10/24 14:25) Medication List - Last Reconciled 08/03/24 by Diane Emery APRN atorvastatin 10 mg PO BEDTIME cholecalciferol (vitamin D3) 25 mcg PO DAILY lamotrigine (Lamictal) 25 mg orally take one tablet daily x14 days then take 2 tablets daily for 14 days then take 3 tablets daily x 14 days then take 4 tablets daily HPI- Psychiatric Chief Complaint: consultation HPI Narrative: pt here for follow up re: PTSD and attention defecit. He has titrated up to 75 mg of lamictal; he reports feeling a little calmer and less intense dreams/nightmares. He denies rash. he does report the onset of waking in night to urinate with urgency; also due=ring the day he experiences urgency and burning with urination. The reserach/literature on lamictal says that this can be a rare side effects fo lamictal but usually transitient and subsides without complications there have bee rare case of kidney dysfuntion; discussed with william rhodes and ordered blood work and UA. Pt will get done on Wednesday AM. In meantime pt will move lamictal 75mg to am and not increase to 100mg until side effects remits/blood work results. Pt also instructed to in crease fluid intake. Past Psychiatric History: outpt tx 1998 No IPLOC. Subjective Subjective Subjective Medication Compliance: Yes Side effects from medications: Yes Review of Systems Medical Review of Systems: changed Review of Systems Genitourinary: Reports nocturia and Reports urinary urgency Mental Status Exam Mental Status Exam Patient Appearance: Well Grooomed and Appropriate Patient Orientation: Person, Place, Time and Situation Level of Consciousness: Awake and Alert Patient Behavior: Appropriate, Cooperative and Good Eye Contact Mood Description: Anxious Affect Description: Anxious Patient Cognition Impaired: No Ability to Follow Directions: Good Speech Pattern: Clear, Appropriate and Coherent Memory Description: Intact Hallucinations: None Delusions: Not Present Thought Process: Intact and Goal Oriented Thought Content: positive for Intact and positive for Goal Oriented Judgement: Good Telehealth Telehealth Telehealth Platform: Other (please specify) ([email or web address].[email or web address]) Location of provider rendering services: practice address Location of patient: other (pt is in his parked car in the [facility]) Patient Identification confirmed using: Name, : Yes Telehealth method: video Patient verbally consented to treatment: Yes Patient verbally consented to billing insurance company: Yes Patient informed of any privacy concerns related to visit: Yes Minutes spent on Phone/Video with Pt.: 25 Assessment and Plan Assessment & Plan (1) PTSD (post-traumatic stress disorder): Status: Acute Code(s): F43.10 - Post-traumatic stress disorder, unspecified (2) Anxiety: Status: Acute Code(s): F41.9 - Anxiety disorder, unspecified (3) Pure hypercholesterolemia with target low density lipoprotein (LDL) cholesterol less than 130 mg/dL: Status: Acute Code(s): E78.00 - Pure hypercholesterolemia, unspecified (4) Urinary urgency: Status: Acute Code(s): R39.15 - Urgency of urination Plan The research/literature on lamictal says that this can be a rare side effects of lamictal but usually transient and subsides without complications there have bee rare case of kidney dysfunction; discussed with patient and ordered blood work and UA. Pt will get done on Wednesday AM. In meantime pt will move lamictal 75mg to am and not increase to 100mg until side effects remits/blood work results. Pt also instructed to increase fluid intake. Medications: New lamotrigine (Lamictal) 75 mg (3 x 25 mg) PO DAILY 90 tabs 0RF 30 days Discontinued lamotrigine (Lamictal) Discontinued Reason: Doctor's Order 25 mg orally take one tablet daily x14 days then take 2 tablets daily for 14 days then take 3 tablets daily x 14 days then take 4 tablets daily 90 tabs 0RF Orders: Orders Lipid Panel with Reflex Today E78.00 - Pure hypercholesterolemia, unspecified Comprehensive Avery. Panel Fast Today F43.10 - Post-traumatic stress disorder, unspecified UA and rflx microscopic Today R39.15 - Urgency of urination Complete Blood Count Auto Diff Today F43.10 - Post-traumatic stress disorder, unspecified Counseling and coordination of Care Pt. Self Management counseling: General coping skills and Problem solving Medication management counseling: Effectiveness, Side effects, Dosing range, Duration, Drug interaction and Adherence Diagnosis and Prognosis Counseling: Accuracy of diagnosis, Prognosis over time, Impact of diagnosis on life functions, Impact of family relationship, Pr oblematic behaviors secondary to diagnosis and Adequacy of current interventions Details: I spent 35 minutes reviewing the record, seeing the patient and documenting in the medical record. Counseling provided to the patient/caregiver as outlined below. Addressed patient/caregiver concerns regarding current medication regime including effective adherence. Addressed patient/caregiver concerns regarding diagnosis and prognosis including accuracy of diagnosis, prognosis over time, impact of diagnosis. Addressed patient/caregiver concerns regarding impact of recent stressors. [facility] Medical History (Updated 08/03/24 @ 11:40 by Diane Emery APRN) Family history of lung cancer PTSD (post-traumatic stress disorder) Surgical History History of tonsillectomy History of vasectomy Family History (Updated 05/23/24 @ 21:07 by YING Skaggs) Mother No problems noted. Father No problems noted. Brother Family history of lung cancer Social History Housing: House Alcohol intake: current Alcohol intake frequency: a few times a month Patient Tobacco Use Status: Current everyday Tobacco user Tobacco use type: Smokeless Tobacco (chews nicotine gum) e-Cigarette/Vaping Use: Never Used Second Hand Smoke Exposure: No service: No Current occupational status: employed Cognitive needs: No Hearing needs: No Vision needs: No Social History: lives with , has 2 children 22 yr old daughter and 14 yr old son. works [employer] Substance History: social etoh use; no hx drug abuse Trauma History: yes Coding Level of Care Code Tele Est Pt Level 4 (11397) Diagnoses PTSD (post-traumatic stress disorder) F43.10 Anxiety F41.9 Pure hypercholesterolemia with target low density lipoprotein (LDL) cholesterol less than 130 mg/dL E78.00 Urinary urgency R39.15
--- OUTSIDE RECORDS SUMMARY | 2024-08-03 10:21 | XMS_ITS | Patient Health Record ---
Author Organization [facility] Address [address] [place] [id number] Care Team Providers Care Nozzleman Name Role Phone Lucas TORRES, Michael Primary Care Provider Trav Roberts Unavailable [phone] Reason For Referral No Information Plan Of Treatment No Information Insurance Providers Payer Name Payer Address Payer Phone Subscriber Number Group Number Insured Name Patient Relationship to Insured Coverage Start Date Coverage End Date [employer] [address] [place] [phone] [id number] LUPE DYE Self - patient is the insured
== END 2024-08-03 09:33 | disposition home or self-care (01) ==
LOC: HO.HOP 09:31
PROVIDERS: Visit Provider Clinical Nurse Specialist Psychiatric/Mental Health
DX: F43.11 Post-traumatic stress disorder, acute (principal); F41.9 Anxiety disorder, unspecified; E78.00 Pure hypercholesterolemia, unspecified; R39.15 Urgency of urination
CPT/HCPCS: 99214

== ENCOUNTER 2024-08-05 07:33 | Outpatient (REF) | payer OTHER, SELFPAY ==
--- OUTSIDE RECORDS SUMMARY | 2024-08-05 07:36 | XMS_ITS | Patient Health Record ---
Author Organization [facility] Address [address] [place] [id number] Care Team Providers Care Desktop Architect Name Role Phone Lucas TORRES, Michael Primary Care Provider Trav Roberts Unavailable [phone] Reason For Referral No Information Plan Of Treatment No Information Insurance Providers Payer Name Payer Address Payer Phone Subscriber Number Group Number Insured Name Patient Relationship to Insured Coverage Start Date Coverage End Date [employer]av [address] [place] [phone] [id number] LUPE DYE Self - patient is the insured
[2024-08-05 08:07] LABS: MANUAL DIFF FLAG NO
[2024-08-05 08:38] LABS: Basophils Percent Auto 0.8 % (0-2); Eosinophils Percent Auto 1.7 % (0-4); Hematocrit 43.5 % (42.0-52.0); Imm Gran Pct Auto 0.3 % (0.0-0.4); Lymphocytes Percent Auto 35.3 % (20-40); Mean Corpuscular HGB Conc 34.5 g/dl (31.0-36.0); Mean Corpuscular Hemoglobin 28.3 pg (27.0-33.0); Mean Corpuscular Volume 82.1 fL (80.0-98.0); Mean Platelet Volume 11.3 fL (9.4-12.4); Monocytes Percent Auto 6.8 % (2-11); Neutrophils Percent Auto 55.1 % (45-73); Platelet Count 186 X10*3/uL (160-400); Red Cell Distribution Width 12.6 % (11.0-16.0); White Blood Count 6.1 X10*3/uL (4.8-10.8)
[2024-08-05 08:39] LABS: Basophils Absolute Auto 0.1 X10*3/uL (0.0-0.2); Eosinophils Absolute Auto 0.1 X10*3/uL (0.0-0.4); Imm Gran Abs Auto 0.02 X10*3/uL (0.00-0.03); Lymphocytes Absolute Auto 2.1 X10*3/uL (1.2-4.9); Monocytes Absolute Auto 0.4 X10*3/uL (0.1-1.2); Neutrophils Absolute Auto 3.3 x10*3/uL (2.0-8.3)
[2024-08-05 09:04] LABS: Appearance Urine Clear; Color Urine Yellow; Glucose Urine UA Negative (Negative); Leukocyte Esterase Urine Negative (Negative); Nitrite Urine Negative (Negative); PH 5.5 (5.0-9.0); Specific Gravity - Urine 1.015 (1.005-1.025); Urine Blood Negative (Negative); Urine Ketones Negative (Negative); Urine Protein Negative (Neg-Trace)
[2024-08-05 09:19] LABS: Alanine Aminotransferase 20 U/L (0-40); Albumin Level 4.8 g/dL (3.5-5.0); Alkaline Phosphatase 58 U/L (39-117); Anion Gap 12 (12-20); Aspartate Amino Transferase 23 U/L (5-37); Bilirubin Total 0.6 mg/dL (0.0-1.0); Blood Urea Nitrogen 11 mg/dL (9-16); Calcium 9.7 mg/dL (8.4-10.2); Carbon Dioxide 28 mmol/L (22-29); Chloride 107 mmol/L (96-108); Cholesterol 198 mg/dL (<200); Estimated Glomerular Filt Rate > 60; Glucose Fasting 96 mg/dL (60-99); HDL Cholesterol 43 mg/dL (>40); Iron 107 mcg/dL (45-160); LDL Cholesterol Calculated 133 mg/dL (<100); Percent Iron Saturation 41 % (15-50); Potassium 4.6 mmol/L (3.3-5.1); Sodium 142 mmol/L (135-145); Total Iron Binding Capacity 264 mcg/dL (228-428); Triglycerides 111 mg/dL (<150); Unsaturated Iron Binding 157 ug/dL
[2024-08-05 09:28] LABS: Ferritin 598 ng/mL (20-250)
[2024-08-05 09:47] LABS: Folate 12.5 ng/mL (> or = 4.0); Vitamin B12 321 pg/mL (200-900)
[2024-08-05 10:39] LABS: Reflex LDLD? No
[2024-08-07 14:28] LABS: Transferrin 232 mg/dL (188-341)
== END 2024-08-05 07:34 | disposition home or self-care (01) ==
LOC: HO.LAB 07:33
PROVIDERS: Visit Provider Clinical Nurse Specialist Psychiatric/Mental Health
DX: F43.10 Post-traumatic stress disorder, unspecified (principal); R53.83 Other fatigue; E78.00 Pure hypercholesterolemia, unspecified; R39.15 Urgency of urination
CPT/HCPCS: 36415; 80053; 80061; 81003; 82607; 82728; 82746; 83540; 84466; 85025

== ENCOUNTER → 2024-09-04 07:02 | Outpatient (REF) | payer OTHER, SELFPAY | LOC: HO.SL 07:02 | DX: G47.33 Obstructive sleep apnea (adult) (pediatric) (principal); R06.83 Snoring; G47.10 Hypersomnia, unspecified | CPT/HCPCS: 95806 ==

== ENCOUNTER → 2024-09-04 07:22 | Outpatient (BNV) | payer OTHER, SELFPAY | PROVIDERS: Visit Provider Internal Medicine | DX: G47.33 Obstructive sleep apnea (adult) (pediatric) (principal) | CPT/HCPCS: 95806 ==

== ENCOUNTER 2024-09-07 09:31 | Outpatient (AMB) | payer OTHER, SELFPAY ==
--- NOTE | 2024-09-07 09:05 | MHC.OFFVISPS ---
Intake Intake Visit Reasons: follow up Service Parts Coordinator Required: No Allergies No Known Allergies Allergy (Verified 05/10/24 14:25) Medication List - Last Reconciled 09/07/24 by Diane Emery APRN atorvastatin 10 mg PO BEDTIME cholecalciferol (vitamin D3) 25 mcg PO DAILY lamotrigine (Lamictal) 75 mg (3 x 25 mg) PO DAILY 30 days HPI- Psychiatric Chief Complaint: follow up HPI Narrative: pt seen via telehealth for follow up re: PTSD and concentration, attention problems. He continue to have side effects from the lamictal;he tapered off it and has been off for approximately 20 days. He reports anxiety has resumed to same level; he is anxious and on edge. He has increased fear and uneasiness with heights; it effects his activities and his relationship as he is unable to tolerate going to places with open staircases or restaurants that are up high. Pts blood work is essentially normal; ferretin high but iron and hgb normal. he will follow up with PCP. He recently started cholesterol medication. Past Psychiatric History: outpt tx 1998 No IPLOC. Mental Status Exam Mental Status Exam Patient Appearance: Well Grooomed and Appropriate Patient Orientation: Person, Place, Time and Situation Level of Consciousness: Awake and Alert Patient Behavior: Appropriate, Cooperative and Good Eye Contact Mood Description: Anxious Affect Description: Anxious Patient Cognition Impaired: No Ability to Follow Directions: Good Speech Pattern: Clear, Appropriate and Coherent Memory Description: Intact Hallucinations: None Delusions: Not Present Thought Process: Intact and Goal Oriented Thought Content: positive for Intact and positive for Goal Oriented Judgement: Good Telehealth Telehealth Telehealth Platform: Other (please specify) ([facility]) Location of provider rendering services: practice address Location of patient: other (pt is in his parked car in the [facility]) Patient Identification confirmed using: Name, : Yes Telehealth method: video Patient verbally consented to treatment: Yes Patient verbally consented to billing insurance company: Yes Patient informed of any privacy concerns related to visit: Yes Minutes spent on Phone/Video with Pt.: 25 Assessment and Plan Assessment & Plan (1) PTSD (post-traumatic stress disorder): Status: Acute Code(s): F43.10 - Post-traumatic stress disorder, unspecified (2) Anxiety: Status: Acute Code(s): F41.9 - Anxiety disorder, unspecified Plan discontinue lamictal start zoloft 50mg take 1/2 tab daily x 4 days then take one daily with food return in 6 weeks for follow up Medications: New sertraline (Zoloft) 50 mg PO DAILY 90 tabs 0RF Discontinued lamotrigine (Lamictal) Discontinued Reason: Doctor's Order 75 mg (3 x 25 mg) PO DAILY 30 days 90 tabs 0RF Counseling and coordination of Care Pt. Self Management counseling: Maintenance-social rhythm, Mod caffeine/ETOH intake, Nutrition education and improvement, General coping skills and Problem solving Medication management counseling: Effectiveness, Side effects, Dosing range, Duration, Drug interaction and Adherence Diagnosis and Prognosis Counseling: Accuracy of diagnosis, Prognosis over time, Impact of diagnosis on life functions, Impact of family relationship, Problematic behaviors secondary to diagnosis and Adequacy of current interventions Details: I spent 35 minutes reviewing the record, seeing the patient and documenting in the medical record. Counseling provided to the patient/caregiver as outlined below. Addressed patient/caregiver concerns regarding current medication regime including effective adherence. Addressed patient/caregiver concerns regarding diagnosis and prognosis including accuracy of diagnosis, prognosis over time, impact of diagnosis. Addressed patient/caregiver concerns regarding impact of recent stressors. [facility] Medical History (Updated 08/03/24 @ 11:40 by Diane Emery APRN) Family history of lung cancer PTSD (post-traumatic stress disorder) Surgical History History of tonsillectomy History of vasectomy Family History (Updated 05/23/24 @ 21:07 by YING Skaggs) Mother No problems noted. Father No problems noted. Brother Family history of lung cancer Social History Housing: House Alcohol intake: current Alcohol intake frequency: a few times a month Patient Tobacco Use Status: Current everyday Tobacco user Tobacco use type: Smokeless Tobacco (chews nicotine gum) e-Cigarette/Vaping Use: Never Used Second Hand Smoke Exposure: No service: No Current occupational status: employed Cognitive needs: No Hearing needs: No Vision needs: No Social History: lives with , has 2 children 22 yr old daughter and 14 yr old son. 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
== END 2024-09-07 09:31 | disposition home or self-care (01) ==
LOC: HO.HOP 09:31
PROVIDERS: Visit Provider Clinical Nurse Specialist Psychiatric/Mental Health
DX: F43.11 Post-traumatic stress disorder, acute (principal); F41.9 Anxiety disorder, unspecified
CPT/HCPCS: 99214

== ENCOUNTER 2024-11-02 10:05 | Outpatient (AMB) | payer OTHER, SELFPAY ==
--- NOTE | 2024-11-02 09:45 | A.OFFPSYCH_ITS ---
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 Pt unable to tolerate zoloft. agreed to trial of prozac in interim. He reports side effects from prozac - numb feeling, sleepy. and he stopped the prozac. He reports anxiety has resumed to same level; he is anxious and on edge. He continues to have trouble with attention and memory. He has increased fear and uneasiness with heights; it effects his activities and his relationship as he is unable to tolerate going to places with open staircases or restaurants that are up high. Pt quit smoking cigarettes but uses nicotine patches all day and would like to reduce use. Pts blood shows high ferretin with normal iron and Hgb normal. Sent message to PCP for follow up. He recently started cholesterol medication. Past Psychiatric History: outpt tx 1998 No IPLOC. Subjective Subjective Subjective Medication Compliance: Yes Side effects from medications: Yes Review of Systems Medical Review of Systems: changed Mental Status Exam Mental Status Exam Patient Orientation: Person, Place, Time and Situation Level of Consciousness: Awake and Alert Patient Behavior: Appropriate and Cooperative Mood Description: Anxious Affect Description: Anxious Patient Cognition Impaired: No Ability to Follow Directions: Good Speech Pattern: Clear, Appropriate and Coherent Memory Description: Intact Hallucinations: None Delusions: Not Present Thought Process: Intact and Goal Oriented Thought Content: positive for Intact and positive for Goal Oriented Judgement: Good Telehealth Telehealth Telehealth Platform: Telephone Location of provider rendering services: practice address Location of patient: address on file Patient Identification confirmed using: Name, : Yes Telehealth method: voice only (video not working at time of appt ) Patient verbally consented to treatment: Yes Patient verbally consented to billing insurance company: Yes Patient informed of any privacy concerns related to visit: Yes Minutes spent on Phone/Video with Pt.: 15 Assessment and Plan Assessment & Plan (1) PTSD (post-traumatic stress disorder): Status: Acute Code(s): F43.10 - Post-traumatic stress disorder, unspecified (2) Attention and concentration deficit: Status: Acute Code(s): R41.840 - Attention and concentration deficit (3) Nicotine dependence: Status: Acute Qualifiers: Nicotine product type: unspecified Substance use status: unspecified nicotine-induced disorder Qualified Code(s): F17.209 - Nicotine dependence, unspecified, with unspecified nicotine-induced disorders Code(s): F17.200 - Nicotine dependence, unspecified, uncomplicated (4) Anxiety: Status: Acute Code(s): F41.9 - Anxiety disorder, unspecified Plan rule out ADHD pt may be slef medicating adhd symptoms with caffeinated drinks and nicotine pouches stop prozac trial of wellbutrin 75mg qam Medications: New bupropion HCl 75 mg PO DAILY 30 tabs 1RF Discontinued fluoxetine Discontinued Reason: Doctor's Order 10 mg PO DAILY 90 caps 1RF Counseling and coordination of Care Pt. Self Management counseling: Maintenance-social rhythm, Mod caffeine/ETOH intake, Nutrition education and improvement, General coping skills and Problem solving Medication management counseling: Effectiveness, Side effects, Dosing range, Duration, Drug interaction and Adherence Diagnosis and Prognosis Counseling: Accuracy of diagnosis, Prognosis over time, Impact of diagnosis on life functions, Impact of family relationship, Problematic behaviors secondary to diagnosis and Adequacy of current interventions Details: I spent 24 minutes reviewing the record, seeing the patient and documenting in the medical record. Counseling provided to the patient/caregiver as outlined below. Addressed patient/caregiver concerns regarding current medication regime including effective adherence. Addressed patient/caregiver concerns regarding diagnosis and prognosis including accuracy of diagnosis, prognosis over time, impact of diagnosis. Addressed patient/caregiver concerns regarding impact of recent stressors. [facility] Medical History (Updated 11/02/24 @ 12:21 by Diane Emery APRN) Family history of lung cancer PTSD (post-traumatic stress disorder) Surgical History History of tonsillectomy History of vasectomy Family History (Updated 05/23/24 @ 21:07 by YING Skaggs) Mother No problems noted. Father No problems noted. Brother Family history of lung cancer Social History Housing: House Alcohol intake: current Alcohol intake frequency: a few times a month Patient Tobacco Use Status: Current everyday Tobacco user Tobacco use type: Smokeless Tobacco (chews nicotine gum) e-Cigarette/Vaping Use: Never Used Second Hand Smoke Exposure: No service: No Current occupational status: employed Cognitive needs: No Hearing needs: No Vision needs: No Social History: lives with , has 2 children 22 yr old daughter and 14 yr old son. works [employer] Substance History: social etoh use; no hx drug abuse Trauma History: yes Coding Level of Care Code Tele Est Pt Level 3 (40242) Diagnoses PTSD (post-traumatic stress disorder) F43.10 Attention and concentration deficit R41.840 Nicotine dependence with nicotine-induced disorder, unspecified nicotine product type F17.209 Nicotine product type: unspecified Substance use status: unspecified nicotine-induced disorder Anxiety F41.9
== END 2024-11-02 10:07 | disposition home or self-care (01) ==
LOC: HO.HOP 10:05
PROVIDERS: Visit Provider Clinical Nurse Specialist Psychiatric/Mental Health
DX: F43.10 Post-traumatic stress disorder, unspecified (principal); R41.840 Attention and concentration deficit; F17.209 Nicotine dependence, unspecified, with unspecified nicotine-induced disorders; F41.9 Anxiety disorder, unspecified
CPT/HCPCS: 99213

== ENCOUNTER 2024-11-11 08:37 | Outpatient (REF) | payer OTHER, SELFPAY ==
[2024-11-11 10:07] LABS: Ferritin 523 ng/mL (20-250)
[2024-11-14 23:34] LABS: Transferrin 229 mg/dL (188-341)
== END 2024-11-11 08:38 | disposition home or self-care (01) ==
LOC: HO.LAB 08:37
DX: R79.89 Other specified abnormal findings of blood chemistry (principal)
CPT/HCPCS: 36415; 82728; 84466

== ENCOUNTER 2024-11-30 13:45 | Outpatient (AMB) | payer OTHER, SELFPAY ==
--- NOTE | 2024-11-30 10:37 | A.OFFPSYCH_ITS ---
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 Pt unable to tolerate wellbutrin. He reports even a low dose kept him up at night; he couldn't tolerate the lack of sleep after a week and stopped; He is waiting to see a certified hearing instrument dispenser due to high ferritin levels. no SI no HI . discussed waiting until he sees hematology before starting new medication as he ahs tried 3 meds and not able to tolerate Past Psychiatric History: outpt tx 1998 No IPLOC. Subjective Subjective Subjective Medication Compliance: Yes Side effects from medications: Yes Review of Systems Medical Review of Systems: changed Mental Status Exam Mental Status Exam Patient Orientation: Person, Place, Time and Situation Level of Consciousness: Awake and Alert Patient Behavior: Appropriate and Cooperative Mood Description: Anxious Affect Description: Anxious Patient Cognition Impaired: No Ability to Follow Directions: Good Speech Pattern: Clear, Appropriate and Coherent Memory Description: Intact Hallucinations: None Delusions: Not Present Thought Process: Intact and Goal Oriented Thought Content: positive for Intact and positive for Goal Oriented Judgement: Good Telehealth Telehealth Telehealth Platform: [employer] Location of provider rendering services: practice address Location of patient: address on file Patient Identification confirmed using: Name, : Yes Telehealth method: video (video not working at time of appt ) Patient verbally consented to treatment: Yes Patient verbally consented to billing insurance company: Yes Patient informed of any privacy concerns related to visit: Yes Minutes spent on Phone/Video with Pt.: 15 Assessment and Plan Assessment & Plan (1) PTSD (post-traumatic stress disorder): Status: Acute Code(s): F43.10 - Post-traumatic stress disorder, unspecified (2) Attention and concentration deficit: Status: Acute Code(s): R41.840 - Attention and concentration deficit (3) Nicotine dependence: Status: Acute Qualifiers: Nicotine product type: unspecified Substance use status: unspecified nicotine-induced disorder Qualified Code(s): F17.209 - Nicotine dependence, unspecified, with unspecified nicotine-induced disorders Code(s): F17.200 - Nicotine dependence, unspecified, uncomplicated (4) Anxiety: Status: Acute Code(s): F41.9 - Anxiety disorder, unspecified Plan rule out ADHD pt may be self medicating adhd symptoms with caffeinated drinks and nicotine pouches stop wellbutrin 75mg qam see in 2 months after sees certified hearing instrument dispenser Counseling and coordination of Care Pt. Self Management counseling: Maintenance-social rhythm, Mod caffeine/ETOH intake, Nutrition education and improvement, General coping skills and Problem solving Medication management counseling: Effectiveness, Side effects, Dosing range, Duration, Drug interaction and Adherence Diagnosis and Prognosis Counseling: Accuracy of diagnosis, Prognosis over time, Impact of diagnosis on life functions, Impact of family relationship, Problematic behaviors secondary to diagnosis and Adequacy of current interventions Details: I spent 20 minutes reviewing the record, seeing the patient and documenting in the medical record. Counseling provided to the patient/caregiver as outlined below. Addressed patient/caregiver concerns regarding current medication regime including e ffective adherence. Addressed patient/caregiver concerns regarding diagnosis and prognosis including accuracy of diagnosis, prognosis over time, impact of diagnosis. Addressed patient/caregiver concerns regarding impact of recent stressors. [facility] Medical History (Updated 11/02/24 @ 13:17 by YING Skaggs) Family history of lung cancer PTSD (post-traumatic stress disorder) Surgical History History of tonsillectomy History of vasectomy Family History (Updated 05/23/24 @ 21:07 by YING Skaggs) Mother No problems noted. Father No problems noted. Brother Family history of lung cancer Social History Housing: House Alcohol intake: current Alcohol intake frequency: a few times a month Patient Tobacco Use Status: Current everyday Tobacco user Tobacco use type: Smokeless Tobacco (chews nicotine gum) e-Cigarette/Vaping Use: Never Used Second Hand Smoke Exposure: No service: No Current occupational status: employed Cognitive needs: No Hearing needs: No Vision needs: No Social History: lives with , has 2 children 22 yr old daughter and 14 yr old son. works FT [employer] Substance History: social etoh use; no hx drug abuse Trauma History: yes Coding Level of Care Code Tele Est Pt Level 3 (32361) Diagnoses PTSD (post-traumatic stress disorder) F43.10 Attention and concentration deficit R41.840 Nicotine dependence with nicotine-induced disorder, unspecified nicotine product type F17.209 Nicotine product type: unspecified Substance use status: unspecified nicotine-induced disorder Anxiety F41.9
== END 2024-11-30 13:46 | disposition home or self-care (01) ==
LOC: HO.HOP 13:45
PROVIDERS: Visit Provider Clinical Nurse Specialist Psychiatric/Mental Health
DX: F43.10 Post-traumatic stress disorder, unspecified (principal); R41.840 Attention and concentration deficit; F17.209 Nicotine dependence, unspecified, with unspecified nicotine-induced disorders; F41.9 Anxiety disorder, unspecified
CPT/HCPCS: 99213

== ENCOUNTER → 2024-12-28 15:20 | Outpatient (BNV) | payer OTHER, SELFPAY | PROVIDERS: Visit Provider Nurse Practitioner Family | DX: D64.9 Anemia, unspecified (principal); R79.89 Other specified abnormal findings of blood chemistry; Z80.1 Family history of malignant neoplasm of trachea, bronchus and lung | CPT/HCPCS: 99203 ==